=== PATIENT | female | born 1955 | race Caucasian/White ===

== ENCOUNTER 2017-08-26 17:10 | Emergency (ER) | payer BC, OTHER ==
--- NOTE | 2017-08-26 17:24 | EDM.PDOC ---
ED HPI GENERAL MEDICAL PROBLEM - General Chief Complaint: Neck Problem Stated Complaint: NECK SHOULDER BACK PAIN Time Seen by Provider: 08/26/17 17:20 Source of Information: Reports: Patient, Old Records, RN History Limitations: Reports: No Limitations - History of Present Illness INITIAL COMMENTS - FREE TEXT/NARRATIVE: 62 yo female with a pHx of HTN and a cardiac ablation presents with intermittent L shoulder and neck pain for the past week with a climbing BP, sx' s are worse today. Today is the first day she sought medical care. Has not missed any of her metoprolol or ASA doses. No SOB, nausea or diaphoresis. No known hx of CAD. 11 yrs ago had neck pain that acted like cardiac ischemia, this went away with a steroid injection(disc dz). Onset: Gradual Onset Date: 08/20/17 Duration: Day(s):, Getting Worse Location: Reports: Neck, Chest Severity: Mild Improves with: Reports: None Worsens with: Reports: None Context: Reports: Other (Hx of HTN, obesity). 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: Reports: Other (see below) (ASA) left neck jaw arm and upper ches t Pain Score (Numeric/FACES): 7 - Related Data Allergies Allergy/AdvReac Type Severity Reaction Status Date / Time latex Allergy Cannot Verified 08/26/17 17:23 Remember codeine AdvReac Vomiting Verified 08/26/17 17:23 Home Meds: Home Meds Aspirin 81 mg PO DAILY 06/28/15 [History] Metoprolol Succinate [Toprol XL] 100 mg PO DAILY 07/06/15 [History] Past Medical History HEENT History: Reports: Impaired Vision Cardiovascular History: Reports: Hypertension Gastrointestinal History: Reports: Cholelithiasis, Colon Polyp 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: Dysfunctional Uterine Bleeding, Polycystic Ovaries, Musculoskeletal History: Reports: Fracture, Neck Pain, Chronic, Osteoarthritis Neurological History: Reports: Migraines Endocrine/Metabolic History: Reports: Obesity/BMI 30+ Hematologic History: Reports: Blood Transfusion(s) - Infectious Disease History Infectious Disease History: Reports: Chicken Pox, Measles, Mumps - Past Surgical History Female Surgical History: Reports: Breast Biopsy, Section, Hysterectomy, Salpingo-Oophorectomy Musculoskeletal Surgical History: Reports: Other (See Below) Social & Family History - Family History Cardiac: Reports: CAD, High Cholesterol, Hypertension - Tobacco Use Smoking Status *Q: Never Smoker Second Hand Smoke Exposure: No - Alcohol Use Days Per Week of Alcohol Use: 1 Number of Drinks Per Day: 2 Total Drinks Per Week: 2 - Recreational Drug Use Recreational Drug Use: No ED ROS GENERAL - Review of Systems Review Of Systems: See Below Constitutional: Reports: No Symptoms HEENT: Reports: No Symptoms Respiratory: Reports: No Symptoms Cardiovascular: Reports: No Symptoms GI/Abdominal: Reports: No Symptoms : Reports: No Symptoms Musculoskeletal: Reports: Neck Pain, Joint Pain (L shoulder) Skin: Reports: No Symptoms Neurological: Reports: No Symptoms ED EXAM, GENERAL - Physical Exam Exam: See Below Exam Limited By: No Limitations General Appearance: Alert, WD/WN, No Apparent Distress, Obese Eye Exam: Bilateral Eye: Normal Inspection Ears: Normal External Exam, Normal Canal, Hearing Grossly Normal Ear Exam: Bilateral Ear: Auricle Normal, Canal Normal Nose: Normal Inspection, Normal Mucosa, No Blood Throat/Mouth: Normal Inspection, Normal Lips, Normal Oropharynx, Normal Voice, No Airway Compromise Head: Atraumatic, Normocephalic Neck: Normal Inspection, Supple, Non-Tender, Full Range of Motion Respiratory/Chest: No Respiratory Distress, Lungs Clear, Normal Breath Sounds, No Accessory Muscle Use, Chest Non-Tender Cardiovascular: Regular Rate, Rhythm, No Edema GI/Abdominal: Normal Bowel Sounds, Soft, Non-Tender, No Distention Extremities: Normal Inspection, Normal Range of Motion, Non-Tender, No Pedal Edema Neurological: Alert, Oriented, CN II-XII Intact, Normal Cognition, No Motor/ Sensory Deficits Psychiatric: Normal Affect, Normal Mood Skin Exam: Warm, Dry, Intact, Normal Color, No Rash EKG INTERPRETATION EKG Date: 08/26/17 Time: 17:10 Rhythm: NSR Rate (Beats/Min): 94 [place]: LAD-Left [place] Deviation P-Wave: Present QRS: Normal ST-T: Normal QT: Normal Comparison: No Change Course - Vital Signs Text/Narrative:: No change in sx's with NTG x 2, BP reduction to mid 140's after 2nd dose. Last Recorded V/S: Last Vital Signs Temp 36.5 C 08/26/17 17:21 Pulse 76 08/26/17 18:08 Resp 18 08/26/17 17:58 BP 148/80 H 08/26/17 18:08 Pulse Ox 96 08/26/17 17:58 - Orders/Labs/Meds Orders: Active Orders 24 hr Category Date Time Status Cardiac Monitoring [RC] .As Directed Care 08/26/17 17:21 Active EKG Documentation Completion [RC] ASDIRECTED Care 08/26/17 17:21 Active Nitroglycerin [Nitrostat] Med 08/26/17 17:37 Active 0.4 mg SL Q5M PRN Sodium Chloride 0.9% [Saline Flush] Med 08/26/17 17:37 Active 10 ml FLUSH ASDIRECTED PRN Saline Lock Insert [OM.PC] Routine Oth 08/26/17 17:37 Ordered EKG 12 Lead [EK] Routine Ther 08/26/17 17:21 Ordered Medication Orders Nitroglycerin (Nitrostat) 0.4 mg SL Q5M PRN PRN Reason: Chest Pain Last Admin: 08/26/17 17:55 Dose: 0.4 mg Admin: 08/26/17 17:40 Dose: 0.4 mg Sodium Chloride (Saline Flush) 10 ml FLUSH ASDIRECTED PRN PRN Reason: Keep Vein Open Labs: Laboratory Tests 08/26/17 08/26/17 Range/Units 17:52 17:52 WBC 6.7 (4.5-11.0) K/uL RBC 5.52 H (3.30-5.50) M/uL Hgb 16.0 H (12.0-15.0) g/dL Hct 47.3 (36.0-48.0) % MCV 86 (80-98) fL MCH 29 (27-31) pg MCHC 34 (32-36) % Plt Count 217 (150-400) K/uL Sodium 141 (140-148) mmol/L Potassium 3.7 (3.6-5.2) mmol/L Chloride 104 (100-108) mmol/L Carbon Dioxide 26 (21-32) mmol/L Anion Gap 11.5 (5.0-14.0) mmol/L BUN 14 (7-18) mg/dL Creatinine 0.9 (0.6-1.0) mg/dL Est Cr Clr Drug Dosing 54.99 mL/min Estimated GFR (MDRD) > 60 (>60) Glucose 111 H (74-106) mg/dL Calcium 9.9 (8.5-10.1) mg/dL Troponin I < 0.017 (0.000-0.056) ng/mL Meds: Medications Generic Name Dose Route Start Last Admin Trade Name Freq PRN Reason Stop Dose Admin Nitroglycerin 0.4 mg 08/26/17 17:37 08/26/17 17:55 Nitrostat SL 0.4 mg Q5M PRN Administration Chest Pain Sodium Chloride 10 ml 08/26/17 17:37 Saline Flush FLUSH ASDIRECTED PRN Keep Vein Open Discontinued Medications Generic Name Dose Route Start Last Admin Trade Name Freq PRN Reason Stop Dose Admin Gabapentin 100 mg 08/26/17 18:01 08/26/17 18:10 Neurontin PO 08/26/17 18:02 100 mg ONETIME ONE Administration Metoprolol Tartrate 50 mg 08/26/17 18:01 08/26/17 18:08 Lopressor PO 08/26/17 18:02 50 mg ONETIME ONE Administration Departure - Departure Time of Disposition: 18:40 Disposition: Home, Self-Care 01 Condition: Good Clinical Impression: Neck pain HTN (hypertension) Qualifiers: Hypertension type: unspecified Qualified Code(s): I10 - Essential (primary) hypertension Referrals: PCP,None [Primary Care Provider] - Forms: ED Department Discharge - My Orders Last 24 Hours: My Active Orders 08/26/17 17:21 Cardiac Monitoring [RC] .As Directed EKG Documentation Completion [RC] ASDIRECTED EKG 12 Lead [EK] Routine 08/26/17 17:37 Nitroglycerin [Nitrostat] 0.4 mg SL Q5M PRN Sodium Chloride 0.9% [Saline Flush] 10 ml FLUSH ASDIRECTED PRN Saline Lock Insert [OM.PC] Routine - Assessment/Plan Last 24 Hours: My Active Orders 08/26/17 17:21 Cardiac Monitoring [RC] .As Directed EKG Documentation Completion [RC] ASDIRECTED EKG 12 Lead [EK] Routine 08/26/17 17:37 Nitroglycerin [Nitrostat] 0.4 mg SL Q5M PRN Sodium Chloride 0.9% [Saline Flush] 10 ml FLUSH ASDIRECTED PRN Saline Lock Insert [OM.PC] Routine
[2017-08-26] MEDS ORDERED: Sodium Chloride 0.9% 10 ML Syringe FLUSH PRN (17:37)
[2017-08-26] MEDS: Nitroglycerin 0.4 MG Tab.SL SL PRN ×2 (17:40→17:55)
[2017-08-26] MEDS ORDERED: Metoprolol Tartrate 50 MG Tab PO ONE (18:01)
[2017-08-26] MEDS: Gabapentin 100 MG Cap PO ONE ×2 (18:08→18:10)
[2017-08-26 18:10] VITALS: BP 148/80
== END 2017-08-26 18:51 | disposition home or self-care (01) ==
LOC: JP.ED 17:10
DX: M54.2 Cervicalgia (principal); I10 Essential (primary) hypertension; Z79.82 Long term (current) use of aspirin; Z79.899 Other long term (current) drug therapy; Z88.5 Allergy status to narcotic agent; Z91.040 Latex allergy status
CPT/HCPCS: 36415; 80048; 84484; 85027; 93005; 99284; A9270

== ENCOUNTER 2018-03-13 15:03 | Emergency (ER) | payer OTHER ==
--- NOTE | 2018-03-13 15:44 | EDM.PDOC ---
ED HPI GENERAL MEDICAL PROBLEM - General Chief Complaint: Cardiovascular Problem Stated Complaint: ELEVATED BP, PALPATIONS Time Seen by Provider: 03/13/18 15:15 Source of Information: Reports: Patient History Limitations: Reports: No Limitations - History of Present Illness INITIAL COMMENTS - FREE TEXT/NARRATIVE: 62-year-old female with a history of ablation 2 years ago, after a significant right sided brief sharp headache 3 days ago has had recurring brief palpitations. She also now has a dull headache on the left side of her head but no other neurologic symptoms other than she noticed her left hand was shaky this morning. She called the clinic to make an appointment tomorrow to see her primary doctor but they recommended she come into the emergency room. On arrival she is mildly hypertensive but in a sinus rhythm, no significant headache or other symptoms. No nausea or vomiting, no aphasia, no visual complaints. 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: Dysfunctional Uterine Bleeding, Polycystic Ovaries, Musculoskeletal History: Reports: Fracture, Neck Pain, Chronic, Osteoarthritis Neurological History: Reports: Migraines Endocrine/Metabolic History: Reports: Obesity/BMI 30+ Hematologic History: Reports: Blood Transfusion(s) - Infectious Disease History Infectious Disease History: Reports: Chicken Pox, Measles, Mumps - Past Surgical History Cardiovascular Surgical History: Reports: Cardiac Ablation Female Surgical History: Reports: Breast Biopsy, Section, Hysterectomy, Salpingo-Oophorectomy Musculoskeletal Surgical History: Reports: Other (See Below) Social & Family History - Family History Cardiac: Reports: CAD, High Cholesterol, Hypertension - Tobacco Use Smoking Status *Q: Never Smoker - Caffeine Use Caffeine Use: Reports: None - Recreational Drug Use Recreational Drug Use: No ED ROS GENERAL - Review of Systems Review Of Systems: See Below Constitutional: Denies: Fever, Chills HEENT: Denies: Vision Change Respiratory: Reports: Cough (When she gets palpitation she feels she has to "cough"). Denies: Shortness of Breath Cardiovascular: Reports: Palpitations GI/Abdominal: Denies: Abdominal Pain Skin: Reports: No Symptoms ED EXAM, GENERAL - Physical Exam Exam: See Below Exam Limited By: No Limitations General Appearance: Alert, No Apparent Distress Eye Exam: Bilateral Eye: EOMI, PERRL Respiratory/Chest: No Respiratory Distress, Lungs Clear Cardiovascular: Regular Rate, Rhythm. No: Extra Beats GI/Abdominal: Non-Tender Extremities: No: Pedal Edema Neurological: Alert, Oriented Skin Exam: Warm, Dry EKG INTERPRETATION Rhythm: NSR Course - Vital Signs Last Recorded V/S: Last Vital Signs Temp 98.3 F 03/13/18 15:09 Pulse 57 L 03/13/18 16:46 Resp 12 03/13/18 16:46 BP 151/77 H 03/13/18 16:46 Pulse Ox 95 03/13/18 16:46 - Orders/Labs/Meds Orders: Active Orders 24 hr Category Date Time Status EKG Documentation Completion [RC] ASDIRECTED Care 03/13/18 15:36 Active Head wo Cont [CT] Stat Exams 03/13/18 15:36 Taken EKG 12 Lead [EK] Routine Ther 03/13/18 15:36 Ordered - Re-Assessments/Exams Free Text/Narrative Re-Assessment/Exam: 03/13/18 16:24 Patient was kept on a monitor for an hour and remained in normal sinus rhythm. A head CT was done which showed no acute findings. She will follow-up with her scheduled appointment with her primary provider tomorrow discuss or palpitations. A Holter monitor may be worthwhile. Departure - Departure Time of Disposition: 17:00 Disposition: Home, Self-Care 01 Condition: Good Clinical Impression: Heart palpitations, Headache on top of head Instructions: Palpitations, [id number] Referrals: Nixon Landis MD [Primary Care Provider] - Forms: ED Department Discharge Care Plan Goals: Recheck with your primary doctor tomorrow as scheduled. Return anytime if worsening or concerns. - My Orders Last 24 Hours: My Active Orders 03/13/18 15:36 EKG Documentation Completion [RC] ASDIRECTED Head wo Cont [CT] Stat EKG 12 Lead [EK] Routine - Assessment/Plan Last 24 Hours: My Active Orders 03/13/18 15:36 EKG Documentation Completion [RC] ASDIRECTED Head wo Cont [CT] Stat EKG 12 Lead [EK] Routine
[2018-03-13 16:46] VITALS: BP 151/77
== END 2018-03-13 17:00 | disposition home or self-care (01) ==
LOC: JP.ED 15:03
DX: R00.2 Palpitations (principal); R51 Headache; I10 Essential (primary) hypertension; E66.9 Obesity, unspecified; Z88.5 Allergy status to narcotic agent; Z91.040 Latex allergy status; Z79.82 Long term (current) use of aspirin
CPT/HCPCS: 70450; 93005; 99285-25

== ENCOUNTER 2024-08-13 06:26 | Day surgery (SDC) | payer MEDICARE ==
[2024-08-13] MEDS ORDERED: fentaNYL 100 MCG/2 ML SDV ONE ×2 (06:54→08:10)
[2024-08-13] MEDS ORDERED: Propofol 200 MG/20 ML SDV ONE (06:55)
[2024-08-13] MEDS ORDERED: Ondansetron 4 MG/2 ML SDV ONE (06:55)
[2024-08-13] MEDS ORDERED: Midazolam 1 MG/ML 2 ML SDV ONE (06:55)
[2024-08-13] MEDS ORDERED: Dexamethasone 4 MG/ML SDV ONE (06:55)
[2024-08-13 06:57] LABS: BASOPHILS ABSOLUTE AUTO 0.06 K/uL (0.00-0.10); BASOPHILS PERCENT AUTO 0.9 % (0.1-1.3); EOSINOPHILS ABSOLUTE AUTO 0.22 K/uL (0.00-0.40); EOSINOPHILS PERCENT AUTO 3.3 % (0.0-5.4); HEMATOCRIT 42.6 % (34.3-46.0); HEMOGLOBIN 14.7 g/dL (11.2-15.5); IMMATURE GRAN PERCENT AUTO 0.3 % (0.0-0.7); LYMPHOCYTES ABSOLUTE AUTO 2.26 K/uL (0.8-3.3); LYMPHOCYTES PERCENT AUTO 33.5 % (11.4-47.7); MEAN CORPUSCULAR HEMOGLOBIN 30.4 pg (31.6-35.5); MEAN CORPUSCULAR HGB CONC 34.5 g/dL (31.6-35.5); MEAN CORPUSCULAR VOLUME 88.2 fL (81.4-99.0); MONOCYTES ABSOLUTE AUTO 0.64 K/uL (0.20-0.90); MONOCYTES PERCENT AUTO 9.5 % (3.3-12.6); NEUTROPHILS ABSOLUTE AUTO 3.54 K/uL (1.0-7.6); NEUTROPHILS PERCENT AUTO 52.5 % (40.0-78.1); PLATELET COUNT,PLT 304 K/uL (130-375); RED BLOOD CELL COUNT 4.83 M/uL (3.77-5.24); WHITE BLOOD CELL COUNT,WBC 6.7 K/uL (3.2-11.0)
[2024-08-13 07:01] LABS: IMMATURE GRAN ABSOLUTE AUTO 0.02 K/uL (0.00-0.23)
[2024-08-13] MEDS: Nozin Nasal Sanitizer NASBOTH ONE (07:14)
[2024-08-13 07:18] LABS: A/G RATIO 1.1 (1.2-2.2); ALANINE AMINOTRANSFERASE,ALT 64 U/L (12-78); ALBUMIN 4.1 g/dL (3.4-5.0); ALKALINE PHOSPHATASE 107 U/L (46-116); ASPARTATE AMNIOTRANSFERASE,AST 31 U/L (15-37); BILIRUBIN TOTAL 0.8 mg/dL (0.2-1.0); BLOOD UREA NITROGEN,BUN 21 mg/dL (7-18); CALCIUM 9.2 mg/dL (8.5-10.1); CARBON DIOXIDE,CO2 29 mmol/L (21-32); CHLORIDE,CL 101 mmol/L (100-108); CREATININE 1.1 mg/dL (0.6-1.0); EST CRCL DRUG DOSING (CG) 39.25 mL/min; ESTIMATED GFR 55 mL/min (>60); GLUCOSE RANDOM 100 mg/dL (74-106); POTASSIUM,K 3.6 mmol/L (3.6-5.2); PROTEIN TOTAL,TP 7.7 g/dL (6.4-8.2); SODIUM,NA 139 mmol/L (140-148)
[2024-08-13 07:19] LABS: ANION GAP 12.6 mmol/L (5.0-14.0)
[2024-08-13] MEDS: Lactated Ringers 1,000 ML IV SCH (07:36)
[2024-08-13] MEDS ORDERED: Sodium Chloride 0.9% 10 ML ONE (07:58)
[2024-08-13] MEDS ORDERED: ceFAZolin 1 GM Vial ONE (07:58)
[2024-08-13] MEDS ORDERED: Ketorolac 30 MG/ML SDV ONE (08:10)
[2024-08-13] MEDS: Bupivacaine 0.5% 30 ML SDV ONE (08:35)
[2024-08-13 11:10] VITALS: BP 128/65; PULSE 54
== END 2024-08-13 11:50 | disposition home or self-care (01) ==
LOC: JP.SDS 06:26
PROVIDERS: ATTEND Specialist
DX: S83.241A Other tear of medial meniscus, current injury, right knee, initial encounter (principal); M17.11 Unilateral primary osteoarthritis, right knee; M22.41 Chondromalacia patellae, right knee; I10 Essential (primary) hypertension; E66.9 Obesity, unspecified; E78.5 Hyperlipidemia, unspecified; X58.XXXA Exposure to other specified factors, initial encounter
CPT/HCPCS: 29881; 36415; 80053; 85025; 93005; 93010; A9270; J0665; J0690; J1100; J1885; J2250; J2405; J2704; J3010; J7120

== ENCOUNTER 2025-05-09 15:55 | Emergency (ER) | payer MEDICARE ==
[2025-05-09 16:04] VITALS: BP 149/69; PULSE 78
[2025-05-09 16:29] LABS: APPEARANCE,URINE CLEAR (CLEAR); GLUCOSE,URINE NEGATIVE (NEGATIVE); OCCULT BLOOD,URINE NEGATIVE (NEGATIVE)
== END 2025-05-09 16:50 | disposition home or self-care (01) ==
LOC: JP.ED 15:55
DX: N39.0 Urinary tract infection, site not specified (principal); I10 Essential (primary) hypertension; E66.9 Obesity, unspecified; Z68.41 Body mass index [BMI] 40.0-44.9, adult; Z90.49 Acquired absence of other specified parts of digestive tract; Z90.710 Acquired absence of both cervix and uterus; Z88.7 Allergy status to serum and vaccine; Z91.040 Latex allergy status; Z88.5 Allergy status to narcotic agent; Z79.82 Long term (current) use of aspirin; Z79.899 Other long term (current) drug therapy
CPT/HCPCS: 81003; 99284